=== PATIENT | male | born 1945 | race Caucasian/White ===

== ENCOUNTER 2022-05-18 08:09 | Inpatient (IN) | payer OTHER ==
[~2022-05-18] VITALS: Ht 177.8 cm; Wt 81.7 kg
[2022-05-18 09:21] LABS: BASOPHILS ABSOLUTE AUTO 0.02 K/mm3 (0.00-0.23); BASOPHILS PERCENT AUTO 0 % (0-2); EOSINOPHILS PERCENT AUTO 0 % (0-6); Hematocrit 42.2 % (37.0-53.0); Hemoglobin 14.6 g/dL (13.5-17.5); IMMATURE GRAN ABSOLUTE AUTO 0.04 K/mm3 (0.00-0.10); IMMATURE GRAN PERCENT AUTO 0 % (0-1); LYMPHOCYTES ABSOLUTE AUTO 0.23 K/mm3 (0.84-5.20); LYMPHOCYTES PERCENT AUTO 2 % (21-46); MONOCYTES PERCENT AUTO 1 % (4-13); Mean Corpuscular HGB 30.3 pg (26.0-34.0); Mean Corpuscular HGB Conc 34.6 g/dL (31.5-36.5); Mean Corpuscular Volume 88 fL (80-100); Mean Platelet Volume 11.4 fL (9.1-12.4); NEUTROPHILS ABSOLUTE AUTO 9.03 K/mm3 (1.96-9.15); NEUTROPHILS PERCENT AUTO 96 % (41-73); Platelet Count 92 K/mm3 (150-400); RDW Coefficient Variation 12.3 % (11.7-14.2); RDW Standard Deviation 39.8 fL (35.1-46.3); Red Blood Cell Count 4.82 M/mm3 (4.30-5.90); White Blood Cell Count 9.42 K/mm3 (4.00-11.30)
[2022-05-18 09:24] LABS: Albumin, Blood 3.5 g/dL (3.4-5.0); Albumin/Globulin Ratio 1.2 (0.8-1.8); Bilirubin, Total 1.3 mg/dL (0.1-1.0); Bun/Creatinine Ratio 19.1 (12.0-20.0); Calcium, Blood 9.1 mg/dL (8.5-10.1); Creatinine, Blood 0.89 mg/dL (0.60-1.20); Globulin, Blood 2.9 g/dL (2.2-4.0); Total Protein, Blood 6.4 g/dL (6.4-8.2)
[2022-05-18] MEDS ORDERED: NAPR500 PO (09:27)
[2022-05-18] MEDS ORDERED: BACL10 PO (09:27)
[2022-05-18] MEDS ORDERED: KETO.5OPSO BOTHEYES (09:28)
[2022-05-18] MEDS ORDERED: OCUFLOX510 OP (09:28)
[2022-05-18] MEDS ORDERED: TRAZ50 PO (09:28)
[2022-05-18] MEDS ORDERED: GABA300 PO (09:29)
[2022-05-18] MEDS ORDERED: DULO30 PO (09:29)
[2022-05-18] MEDS ORDERED: MULVITA PO (09:29)
[2022-05-18] MEDS ORDERED: Acetaminophen325 M1 PO (09:30)
[2022-05-18] MEDS ORDERED: Aspir 8181 MG PO (09:30)
[2022-05-18] MEDS ORDERED: ATOR20 PO (09:31)
[2022-05-18] MEDS ORDERED: ATEN50 PO (09:31)
[2022-05-18] MEDS ORDERED: PANT40 PO (09:31)
[2022-05-18 10:25] LABS: Source, Urine Straight Cath
[2022-05-18 10:28] LABS: Appearance, Urine Cloudy (Clear); Bilirubin, Urine Neg (Neg); Blood, Urine 4+ (Neg); Color, Urine Yellow (P-Yellow); Glucose Qualitative, Urine Neg (Neg); Ketones, Urine Neg (Neg); Leukocyte Esterase, Urine 3+ (Neg); Nitrite, Urine Pos (Neg); Protein, Urine 2+ (Neg); Specific Gravity, Urine 1.015 (1.003-1.022); Urobilinogen, Urine NORM (Normal)
[2022-05-18 10:54] LABS: Bacteria Many /hpf; Squamous Epithelial Cells Few /hpf (Few)
--- NOTE | 2022-05-18 14:21 | NUR ---
PT ARRIVED TO UNIT. PT ABLE TO SELF TRANSFER TO BED. ORIENTED TO ROOM/CALL LIGHT W/IN REACH. WATER PROVIDED. PT C/O HEADACHE-PLAN TO MEDICATE PER EMAR.
--- NOTE | 2022-05-18 15:19 | NUR ---
DR. REDDY CONTACTED AND CL LACTIC ACID REPORTED-PLAN TO CONTINUE NS @ 100 ML/HR
--- NOTE | 2022-05-19 05:11 | NUR ---
SHIFT SUMMARY 76 YR M ADMITTED ON 05/18/22 FOR UTI/SEPSIS. DNI. NO ACUTE CHANGES THIS SHIFT. PT HAS SLEPT FOR A GOOD PORTION OF THIS SHIFT AND HIS N/V SEEMS TO BE RESOLVED HE HAD NO C/O. HE INDEPENDANTLY USES A URINAL AND CALLS APPROPRIATELY FOR ASSISTANCE. A&OX4. HE IS PLEASANT AND COOPERATIVE WITH CARE AND FOLLOWS INSTRUCTIONS WELL.
[2022-05-19 10:02] LABS: BASOPHILS ABSOLUTE AUTO 0.06 K/mm3 (0.00-0.23); BASOPHILS PERCENT AUTO 0 % (0-2); EOSINOPHILS ABSOLUTE AUTO 0.01 K/mm3 (0.00-0.68); EOSINOPHILS PERCENT AUTO 0 % (0-6); Hematocrit 39.9 % (37.0-53.0); Hemoglobin 13.6 g/dL (13.5-17.5); IMMATURE GRAN ABSOLUTE AUTO 0.08 K/mm3 (0.00-0.10); IMMATURE GRAN PERCENT AUTO 1 % (0-1); LYMPHOCYTES ABSOLUTE AUTO 0.64 K/mm3 (0.84-5.20); LYMPHOCYTES PERCENT AUTO 5 % (21-46); MONOCYTES ABSOLUTE AUTO 1.45 K/mm3 (0.16-1.47); MONOCYTES PERCENT AUTO 10 % (4-13); Mean Corpuscular HGB 30.4 pg (26.0-34.0); Mean Corpuscular HGB Conc 34.1 g/dL (31.5-36.5); Mean Corpuscular Volume 89 fL (80-100); Mean Platelet Volume 11.5 fL (9.1-12.4); NEUTROPHILS PERCENT AUTO 84 % (41-73); Platelet Count 85 K/mm3 (150-400); RDW Coefficient Variation 12.8 % (11.7-14.2); RDW Standard Deviation 42.3 fL (35.1-46.3); Red Blood Cell Count 4.47 M/mm3 (4.30-5.90); White Blood Cell Count 14.04 K/mm3 (4.00-11.30)
[2022-05-19 10:20] LABS: Albumin, Blood 2.8 g/dL (3.4-5.0); Anion Gap 5 mmol/L (6-16); Blood Urea Nitrogen 18 mg/dL (8-24); Bun/Creatinine Ratio 18.9 (12.0-20.0); CO2, Blood 25 mmol/L (21-32); Calcium, Blood 8.8 mg/dL (8.5-10.1); Chloride, Blood 111 mmol/L (98-108); Creatinine, Blood 0.95 mg/dL (0.60-1.20); Glomerular Filtration Rate 84 (60-); Glucose, Blood 109 mg/dL (70-99); Phosphorus, Blood 1.4 mg/dL (2.5-4.9); Potassium, Blood 3.8 mmol/L (3.5-5.5); Sodium, Blood 141 mmol/L (136-145)
--- NOTE | 2022-05-19 17:08 | NUR ---
PATIENT IS ALERT AND ORIENTED AND COOPERATIVE WITH CARE. C/O HEADACHE, MEDICATED PER EMAR. PATIENT STATES HE WAS HAVING DIARRHEA AT HOME AND LAST NIGHT BUT NONE THIS SHIFT. POSITIVE BLOOD CULTURES. PATIENT STATES HE LIVES WITH HIS BEST FRIEND AND CARES FOR HER. PATIENT IS EAGER TO GO HOME BUT UNDERSTANDS HE NEEDS IV ANTIBIOTICS. WILL CONTINUE TO MONITOR
--- NOTE | 2022-05-20 04:42 | NUR ---
SHIFT SUMMARY 76 YR M ADMITTED ON 05/18/22 FOR UTI/SEPSIS. DNI. NO ACUTE CHANGES THIS SHIFT. CURRENTLY BEING TX W/ ABX FOR POSITIVE BLOOD CULTURES. PT IS A&O X 4 AND IS INDEPENDANT IN THE ROOM. HE C/O URINARY FREQUENCY AND HAVING TO MAKE SO MANY TRIPS TO THE BATHROOM. NO C/O PAIN OR DIARRHEA THIS SHIFT.
--- NOTE | 2022-05-20 06:01 | NUR ---
ROOM TRANSFER PT TRANSFERRED FROM RM 353 TO RM 359. REPORT TAKEN FROM AZEB QUIÑONES TO ASSUME CARE OF PT AT THIS TIME. PT SETTLED INTO RM 359, BELONGINGS IN PLACE.
[2022-05-20 08:51] LABS: Hematocrit 42.4 % (37.0-53.0); Hemoglobin 14.8 g/dL (13.5-17.5); Mean Corpuscular HGB 30.5 pg (26.0-34.0); Mean Corpuscular HGB Conc 34.9 g/dL (31.5-36.5); Mean Corpuscular Volume 87 fL (80-100); Mean Platelet Volume 11.8 fL (9.1-12.4); Platelet Count 89 K/mm3 (150-400); RDW Coefficient Variation 12.5 % (11.7-14.2); RDW Standard Deviation 39.9 fL (35.1-46.3); Red Blood Cell Count 4.86 M/mm3 (4.30-5.90); White Blood Cell Count 9.63 K/mm3 (4.00-11.30)
[2022-05-20 09:08] LABS: Albumin, Blood 3.1 g/dL (3.4-5.0); Anion Gap 7 mmol/L (6-16); Blood Urea Nitrogen 14 mg/dL (8-24); Bun/Creatinine Ratio 15.6 (12.0-20.0); CO2, Blood 25 mmol/L (21-32); Calcium, Blood 9.1 mg/dL (8.5-10.1); Chloride, Blood 108 mmol/L (98-108); Glomerular Filtration Rate 90 (60-); Glucose, Blood 113 mg/dL (70-99); Phosphorus, Blood 3.1 mg/dL (2.5-4.9); Potassium, Blood 3.8 mmol/L (3.5-5.5); Sodium, Blood 140 mmol/L (136-145)
--- NOTE | 2022-05-20 18:45 | NUR ---
PATIENT COMPLAINING OF PAIN WHEN URINATING AND DIFFICULTY EMPTYING BLADDER. MEDICATED PER NOV. BLADDER SCANNED PATIENT PRE VOID 288ML AND POST VOID 201ML. DR LOCKETT. WILL CONTINUE TO MONITOR URINARY OUTPUT.
--- NOTE | 2022-05-20 18:46 | NUR ---
SHIFT SUMMARY PATIENT A&OX4. AMBULATED INDEPENDENTLY. PLEASANT AND COOPERATIVE WITH CARE. C/O PAIN WHEN URINATING AND DIFFICULTY EMPTYING BLADDER. NO OTHER SIGNIFICANT EVENTS. WILL CONTINUE TO MONITOR.
--- NOTE | 2022-05-20 22:26 | NUR ---
BP 208/117 AND PO APRESOLINE 10 MG GIVEN FOR SBP >180. BP 132/78 ON REASSESSMENT. PATIENT WAS ANXIOUS AND UP TO BR ON FIRST BP.
--- NOTE | 2022-05-21 04:04 | NUR ---
SHIFT SUMMARY PATIENT BP ELEVATED AT SHIFT CHANGE 208/117. PO APRESOLINE 10 MG GIVEN FOR SBP >180. REASSESSED 132/78. AXO X 4 AND INDEPENDENT IN ROOM. POWERGLIDE PEDRO INTACT. PATIENT REPORTS VOIDING EASIER AFTER TAKING PYRIDIUM PRN. DENIES PAIN, SOB, AND N/V. AFEBRILE. CALL LIGHT IN REACH. BED IN LOWEST POSITION. WILL CONTINUE TO MONITOR UNTIL DAY SHIFT NURSE ASSUMES CARE.
[2022-05-21 04:42] LABS: Mean Platelet Volume 11.5 fL (9.1-12.4); Platelet Count 141 K/mm3 (150-400)
[2022-05-21 04:58] LABS: Albumin, Blood 3.2 g/dL (3.4-5.0); Anion Gap 7 mmol/L (6-16); Blood Urea Nitrogen 11 mg/dL (8-24); Bun/Creatinine Ratio 11.6 (12.0-20.0); CO2, Blood 27 mmol/L (21-32); Calcium, Blood 9.4 mg/dL (8.5-10.1); Chloride, Blood 106 mmol/L (98-108); Creatinine, Blood 0.95 mg/dL (0.60-1.20); Glomerular Filtration Rate 84 (60-); Glucose, Blood 107 mg/dL (70-99); Phosphorus, Blood 3.5 mg/dL (2.5-4.9); Potassium, Blood 3.5 mmol/L (3.5-5.5); Sodium, Blood 140 mmol/L (136-145)
--- NOTE | 2022-05-21 17:05 | NUR ---
SHIFT SUMMARY PATIENT A&OX4. AMBULATED INDEPENDENTLY IN ROOM AND HALLWAYS. C/O FREQUENT URINATION WITH DIFFICULTY EMPTYING BLADDER AND PAIN. MEDICATED WITH PYRDIUM AND STARTED ON FLOMAX THIS AFTERNOON. POST VOID PATIENT STILL HAD 132ML. C/O ACID REFLUX THIS AM, MEDICATED WITH TUMS WITH COMPLETE RELIEF. ELEVATED BP, OTHER VITAL SIGNS STABLE. RECEIVED PO AND IV ANTIBIOTICS. WILL CONTINUE TO MONITOR.
--- NOTE | 2022-05-21 18:54 | NUR ---
PATIENT VOIDED 200ML. POST VOID BLADDER SCAN SHOWING 143ML
[2022-05-22 04:40] LABS: Hematocrit 42.4 % (37.0-53.0); Hemoglobin 14.2 g/dL (13.5-17.5); Mean Corpuscular HGB 29.5 pg (26.0-34.0); Mean Corpuscular HGB Conc 33.5 g/dL (31.5-36.5); Mean Corpuscular Volume 88 fL (80-100); Mean Platelet Volume 11.6 fL (9.1-12.4); Platelet Count 132 K/mm3 (150-400); RDW Coefficient Variation 12.4 % (11.7-14.2); Red Blood Cell Count 4.82 M/mm3 (4.30-5.90); White Blood Cell Count 8.34 K/mm3 (4.00-11.30)
--- NOTE | 2022-05-22 04:49 | NUR ---
SHIFT SUMMARY PATIENT POST BLADDER SCANS <200 AND DOWN TO 48mL. AXO X4 AND INDEPENDENT IN ROOM. POWERGLIDE PEDRO INTACT. VSS/AFEBRILE. DENIES CHEST PAIN, SOB, AND N/V. COOPERATIVE WITH CARE. CALL LIGHT IN REACH. BED IN LOWEST POSITION. WILL CONTINUE TO MONITOR UNTIL DAY SHIFT NURSE ASSUMES CARE.
[2022-05-22 04:51] LABS: Albumin, Blood 2.9 g/dL (3.4-5.0); Anion Gap 6 mmol/L (6-16); Blood Urea Nitrogen 12 mg/dL (8-24); Bun/Creatinine Ratio 11.8 (12.0-20.0); CO2, Blood 29 mmol/L (21-32); Calcium, Blood 9.2 mg/dL (8.5-10.1); Chloride, Blood 107 mmol/L (98-108); Creatinine, Blood 1.02 mg/dL (0.60-1.20); Glomerular Filtration Rate 77 (60-); Glucose, Blood 106 mg/dL (70-99); Phosphorus, Blood 4.3 mg/dL (2.5-4.9); Potassium, Blood 3.9 mmol/L (3.5-5.5); Sodium, Blood 142 mmol/L (136-145)
[2022-05-22] MEDS ORDERED: LEVFLO500 PO (11:33)
[2022-05-22] MEDS ORDERED: TAMS.4ER PO (11:34)
[2022-05-22] MEDS ORDERED: VISBIOME 112.51 EACH PO (11:34)
[2022-05-22] MEDS ORDERED: PHENAZOPYRIDINE95 MG PO (11:34)
--- NOTE | 2022-05-22 12:18 | NUR ---
DISCHARGE SUMMARY ALERT AND ORIENTED THROUGHOUT SHIFT. INDEPENDENT IN ROOM. TOLERATING REGULAR DIET AND LIQUIDS. FREQUENT URINATION. DISCHARGE ORDER OBTAINED. DISCHARGE EDUCATION GIVEN ON NEW MEDS AND FOLLOW UP APPTS. POWERGLIDE IV DC'D WNL. PT TOLERATED WELL.
--- NOTE | 2022-05-22 14:42 | NUR ---
DISCHARGE NOTE PATIENT LEFT UNIT AT 1300 VIA WHEELCHAIR WITH FAMILY FOR HOME.
== END 2022-05-22 13:41 | disposition home or self-care (01) | DRG 871 ==
LOC: ER 08:09 → MEDS 08:10 → ER 08:10 → MEDS 14:00 → ENPENDDIS 05-22 10:32 → MEDS 05-22 13:41
PROVIDERS: Emergency Medicine; Internal Medicine; ADMIT Hospitalist
DX: A41.51 Sepsis due to Escherichia coli [E. coli] (principal); J18.9 Pneumonia, unspecified organism; N39.0 Urinary tract infection, site not specified; E87.2 Acidosis; R65.20 Severe sepsis without septic shock; G47.00 Insomnia, unspecified; I10 Essential (primary) hypertension; E78.5 Hyperlipidemia, unspecified; G89.29 Other chronic pain; K21.9 Gastro-esophageal reflux disease without esophagitis; M54.9 Dorsalgia, unspecified; E87.6 Hypokalemia; D69.6 Thrombocytopenia, unspecified; E83.39 Other disorders of phosphorus metabolism; N40.1 Benign prostatic hyperplasia with lower urinary tract symptoms; R30.0 Dysuria; R35.0 Frequency of micturition; R33.8 Other retention of urine; Z87.891 Personal history of nicotine dependence; Z79.82 Long term (current) use of aspirin; Z79.899 Other long term (current) drug therapy
CPT/HCPCS: 36415; 51701; 51798; 71045; 80053; 80069; 81001; 83605; 84145; 84153; 85025; 85027; 85049; 85651; 86141; 87040; 87077; 87086; 87186; 96361-59; 96374-59; 99285-25; A9270; J0696; J1650; J2405; J2765; J7030; J7060

== ENCOUNTER 2024-05-30 12:05 | Emergency (ER) | payer OTHER ==
[~2024-05-30] VITALS: Ht 177.8 cm; Wt 87.5 kg
[~2024-05-30 12:05] MED LIST: ATEN50 PO; ATOR20 PO; Acetaminophen325 M1 PO; Aspir 8181 MG PO; BACL10 PO; DULO30 PO; GABA300 PO; KETO.5OPSO BOTHEYES; LEVFLO500 PO; LIDO700A20 TOP; MULVITA PO; NAPR500 PO; OCUFLOX510 OP; PANT40 PO; PHENAZOPYRIDINE95 MG PO; Percocet 5-3251 EACH PO; TAMS.4ER PO; TRAZ50 PO; VISBIOME 112.51 EACH PO
[2024-05-30 12:55] VITALS: BP 104/73
== END 2024-05-30 13:49 | disposition home or self-care (01) ==
LOC: ER 12:05
DX: U07.1 COVID-19 (principal); E78.5 Hyperlipidemia, unspecified; I10 Essential (primary) hypertension; K21.9 Gastro-esophageal reflux disease without esophagitis; Z87.891 Personal history of nicotine dependence; Z79.82 Long term (current) use of aspirin; Z79.899 Other long term (current) drug therapy
CPT/HCPCS: 99284

== ENCOUNTER 2025-01-10 14:30 | Observation (INO) | payer OTHER ==
[~2025-01-10] VITALS: Ht 182.9 cm; Wt 73.1 kg
[2025-01-10] MEDS ORDERED: Naloxone HCl 0.4MG / ML 1ML Vial IV ONE (15:00)
[2025-01-10 15:15] LABS: BASOPHILS ABSOLUTE AUTO 0.04 K/mm3 (0.00-0.23); BASOPHILS PERCENT AUTO 1 % (0-2); EOSINOPHILS ABSOLUTE AUTO 0.03 K/mm3 (0.00-0.68); EOSINOPHILS PERCENT AUTO 0 % (0-6); Hematocrit 39.1 % (37.0-53.0); Hemoglobin 13.7 g/dL (13.5-17.5); IMMATURE GRAN ABSOLUTE AUTO 0.02 K/mm3 (0.00-0.10); IMMATURE GRAN PERCENT AUTO 0 % (0-1); LYMPHOCYTES ABSOLUTE AUTO 0.74 K/mm3 (0.84-5.20); LYMPHOCYTES PERCENT AUTO 9 % (21-46); MONOCYTES ABSOLUTE AUTO 0.54 K/mm3 (0.16-1.47); MONOCYTES PERCENT AUTO 7 % (4-13); Mean Corpuscular HGB 31.2 pg (26.0-34.0); Mean Corpuscular Volume 89 fL (80-100); NEUTROPHILS ABSOLUTE AUTO 6.55 K/mm3 (1.96-9.15); NEUTROPHILS PERCENT AUTO 83 % (41-73); Platelet Count 162 K/mm3 (150-400); RDW Coefficient Variation 12.6 % (11.7-14.2); RDW Standard Deviation 41.2 fL (35.1-46.3); Red Blood Cell Count 4.39 M/mm3 (4.30-5.90); White Blood Cell Count 7.92 K/mm3 (4.00-11.30)
[2025-01-10 15:41] LABS: Alanine Aminotransfer (ALT/SGP 31 U/L (12-78); Albumin, Blood 3.6 g/dL (3.4-5.0); Albumin/Globulin Ratio 1.3 (0.8-1.8); Alk Phos 46 U/L (50-136); Anion Gap 12 mmol/L (3-11); Aspartate Aminotrans (AST/SGOT 44 U/L (12-37); Bilirubin, Total 1.1 mg/dL (0.1-1.0); Blood Urea Nitrogen 15 mg/dL (8-24); Bun/Creatinine Ratio 14.6 (12.0-20.0); CO2, Blood 24 mmol/L (21-32); Calcium, Blood 9.5 mg/dL (8.5-10.1); Chloride, Blood 106 mmol/L (98-108); Creatinine, Blood 1.03 mg/dL (0.60-1.20); Ethanol (Alcohol), Blood, Med <3 mg/dL; Globulin, Blood 2.7 g/dL (2.2-4.0); Glomerular Filtration Rate 75 (60-); Glucose, Blood 112 mg/dL (70-99); Potassium, Blood 3.6 mmol/L (3.5-5.5); Sodium, Blood 138 mmol/L (136-145); Total Protein, Blood 6.3 g/dL (6.4-8.2)
[2025-01-10 16:03] LABS: Source, Urine Straight Cath
[2025-01-10 16:06] LABS: Appearance, Urine Clear (Clear); Bilirubin, Urine Neg (Neg); Blood, Urine Neg (Neg); Color, Urine Yellow (P-Yellow); Glucose Qualitative, Urine Neg (Neg); Ketones, Urine Neg (Neg); Leukocyte Esterase, Urine Neg (Neg); Nitrite, Urine Neg (Neg); Protein, Urine 2+ (Neg); Urobilinogen, Urine 1+ (Normal)
[2025-01-10 16:15] LABS: Bacteria Rare /hpf; Calcium Oxalate Crystals Rare /hpf; Red Blood Cells, Urine 0-2 /hpf (0-2); Squamous Epithelial Cells Rare /hpf (Few); White Blood Cells, Urine 0-2 /hpf (0-5)
[2025-01-10 16:16] LABS: Mucus Light (0-Heavy)
[2025-01-10 16:17] LABS: U Amphetamine Screen Not Detected; U Barbituate Screen Not Detected; U Benzodiazapine Screen Not Detected; U Buprenorphine Screen Not Detected; U Cannabinoids Screen Not Detected; U Cocaine Screen Not Detected; U Methadone Screen Not Detected; U Methamphetamine Screen Not Detected; U Opiates Screen Not Detected; U Oxycodone Screen Not Detected; U Phencyclidine Screen Not Detected
[2025-01-10] MEDS ORDERED: Azithromycin 500 MG in NS 250 ML IV ONE (17:55)
[2025-01-10] MEDS ORDERED: CefTRIAXone Sodium 1,000 MG in NS 100 ML IV ONE (17:55)
[2025-01-10] MEDS ORDERED: Ondansetron HCl 2 MG / ML 2ML Vial IV PRN (18:30)
[2025-01-10] MEDS ORDERED: NS 1,000 ML IV SCH (18:30)
[2025-01-10] MEDS ORDERED: Enoxaparin 40 MG/0.4 ML SYR SC SCH (19:00)
[2025-01-10 19:28] LABS: Base Excess Venous -0.5 mmol/L; Bicarbonate Venous 23.2 mmol/L (24.0-30.0); PCO2 Venous 53.4 mmHg (38-42)
[2025-01-10 19:30] LABS: Influenza A, PCR NEGATIVE (NEGATIVE); Influenza B, PCR NEGATIVE (NEGATIVE); Resp Syncytial Virus, PCR NEGATIVE (NEGATIVE); SARS-Cov-2 (COVID-19) PCR, MMC NEGATIVE (NEGATIVE)
[2025-01-10 21:15] VITALS: BP 126/89
[2025-01-10] MEDS ORDERED: NS 1,000 ML IV ONE (21:33)
--- NOTE | 2025-01-10 22:22 | NUR ---
ASSUMPTION OF CARE PT ARRIVED TO ROOM AND SLID TO HOSPITAL BED. PT IS VISIBLY CONFUSED AND RESTLESS, HE IS ATTEMPTING TO EXIT THE BED AND PULLING AT IV AND RDZ. PT IS UNABLE TO BE REDIRECTED OR DISTRACTED. SOFT RESTRAINTS APPLIED TO BILATERAL WRISTS. RESTRAINTS DISCONTINUED AFTER 1 HOUR. PT IS A&O TO PERSON, HE IS UNABLE TO STATE HIS BIRTHDATE, LOCATION, OR YEAR. VSS, AFEBRILE, SPO2 >95% ON RA. RDZ IN PLACE DRAINING YELLOW URINE TO GRAVITY. FLUIDS INFUSING PER EMAR. PT IS NOW SLEEPING, RESPIRATIONS ARE EVEN AND UNLABORED, CALL LIGHT IN REACH, BED ALARM ON, BED IN LOWEST POSITION.
[2025-01-11 00:06] VITALS: BP 126/69
[2025-01-11] MEDS ORDERED: TOLTERODINE TART4 MG PO (02:52)
[2025-01-11] MEDS ORDERED: MAGNESIUM OXID500 MG PO (02:53)
[2025-01-11] MEDS ORDERED: CARBOXYMETHYLCE15 ML BOTHEYES (02:56)
[2025-01-11] MEDS ORDERED: THERA-D2000 UNIT PO (02:59)
[2025-01-11] MEDS ORDERED: B-12500 MC2 PO (03:00)
[2025-01-11 03:48] VITALS: BP 144/101
[2025-01-11 03:57] LABS: BASOPHILS ABSOLUTE AUTO 0.04 K/mm3 (0.00-0.23); BASOPHILS PERCENT AUTO 1 % (0-2); EOSINOPHILS ABSOLUTE AUTO 0.05 K/mm3 (0.00-0.68); EOSINOPHILS PERCENT AUTO 1 % (0-6); Hematocrit 39.6 % (37.0-53.0); Hemoglobin 13.6 g/dL (13.5-17.5); IMMATURE GRAN ABSOLUTE AUTO 0.03 K/mm3 (0.00-0.10); IMMATURE GRAN PERCENT AUTO 0 % (0-1); LYMPHOCYTES ABSOLUTE AUTO 1.12 K/mm3 (0.84-5.20); LYMPHOCYTES PERCENT AUTO 15 % (21-46); MONOCYTES ABSOLUTE AUTO 0.77 K/mm3 (0.16-1.47); MONOCYTES PERCENT AUTO 10 % (4-13); Mean Corpuscular HGB 30.8 pg (26.0-34.0); Mean Corpuscular HGB Conc 34.3 g/dL (31.5-36.5); Mean Corpuscular Volume 90 fL (80-100); Mean Platelet Volume 11.2 fL (9.1-12.4); NEUTROPHILS ABSOLUTE AUTO 5.65 K/mm3 (1.96-9.15); NEUTROPHILS PERCENT AUTO 74 % (41-73); Platelet Count 149 K/mm3 (150-400); RDW Coefficient Variation 12.6 % (11.7-14.2); RDW Standard Deviation 41.5 fL (35.1-46.3); Red Blood Cell Count 4.41 M/mm3 (4.30-5.90); White Blood Cell Count 7.66 K/mm3 (4.00-11.30)
[2025-01-11 04:17] LABS: Albumin, Blood 3.1 g/dL (3.4-5.0); Albumin/Globulin Ratio 1.2 (0.8-1.8); Bilirubin, Total 0.7 mg/dL (0.1-1.0); Bun/Creatinine Ratio 13.9 (12.0-20.0); Calcium, Blood 8.6 mg/dL (8.5-10.1); Creatinine, Blood 0.86 mg/dL (0.60-1.20); Globulin, Blood 2.6 g/dL (2.2-4.0); Total Protein, Blood 5.7 g/dL (6.4-8.2)
--- NOTE | 2025-01-11 05:37 | NUR ---
SHIFT SUMMARY NO ACUTE CHANGES SINCE ASSUMPTION OF CARE. PT IS A&O TO SELF, UNABLE TO MAKE NEEDS KNOWN. PT HAS REQUIRED BILATERAL SOFT WRIST RESTRAINTS THIS SHIFT DUE TO PULLING AT LINES AND RDZ AND TRYING TO GET OOB. HE HAS BEEN UNABLE TO BE REDIRECTED. VSS, AFEBRILE. RDZ DRAINING YELLOW URINE TO GRAVITY. NS INFUSING PER EMAR. HE IS NOW RESTING IN BED, BREATHING EVEN AND UNLABORED, CALL LIGHT IN REACH.
[2025-01-11 07:24] VITALS: BP 144/88
--- NOTE | 2025-01-11 07:24 | NUR ---
ASSUMPTION NOTE: THIS RN TO ASSUME CARE OF PATIENT. PATIENT IS ALERT AND ORIENTED X1, TO SELF ONLY. WAS REORIENTED TO PLACE & SITUATION. PATIENT HAS A SITTER IN THE ROOM. VITAL SIGNS TAKEN, PATIENT STABLE. DENIES ANY NEED AT THIS TIME, HAS CALL LIGHT WITHIN REACH, BED IN LOWEST POSITION & BED ALARM ON.
[2025-01-11 10:29] LABS: Adenovirus Not Detected (NOT DETECT); Bordetella pertussis Not Detected (NOT DETECT); Chlamydophila pneumoniae Not Detected (NOT DETECT); Coronavirus 229E Not Detected (NOT DETECT); Coronavirus HKU1 Not Detected (NOT DETECT); Coronavirus NL63 Not Detected (NOT DETECT); Coronavirus OC43 Not Detected (NOT DETECT); Human Metapneumovirus Not Detected (NOT DETECT); Human Rhinovirus/Enterovirus Not Detected (NOT DETECT); Influenza A/2009-H1 Not Detected (NOT DETECT); Influenza A/H1 Not Detected (NOT DETECT); Influenza A/H3 Not Detected (NOT DETECT); Influenza B Not Detected (NOT DETECT); Mycoplasma pneumoniae Not Detected (NOT DETECT); Parainfluenza Virus 1 Not Detected (NOT DETECT); Parainfluenza Virus 2 Not Detected (NOT DETECT); Parainfluenza Virus 3 Not Detected (NOT DETECT); Parainfluenza Virus 4 Not Detected (NOT DETECT); Respiratory Syncytial Virus Not Detected (NOT DETECT); SARS-Cov-2 (COVID-19), BioFire Not Detected (NOT DETECT)
--- NOTE | 2025-01-11 11:25 | NUR ---
MD ROUNDED: MD TO BEDSIDE AND ROUNDED ON PATIENT. PATIENT WAS TALKING WITH MD AND MORE ALERT. PATIENT WAS WORRIED ABOUT WHEN HE WOULD BE ABLE TO GO HOME & WAS WORRIED ABOUT HIS GIRLFRIEND HE IS HER NIGHT CAREGIVER. PATIENT WAS NOTIFIED HE WAS DOING BETTER AND IS NOW MEDICAL WITH TELE STATUS & WILL MOVE UPSTAIRS AT SOME POINT.
[2025-01-11] MEDS ORDERED: Peg 400/Hypromellose/Glycerin 15 DROP/ML BTL BOTHEYES PRN (13:30)
[2025-01-11] MEDS ORDERED: Acetaminophen 325 MG TABLET PO PRN (13:30)
[2025-01-11] MEDS ORDERED: Gabapentin 300 MG Cap PO SCH (14:00)
[2025-01-11] MEDS ORDERED: Lidocaine 4% 1 Patch TOP PRN (14:00)
[2025-01-11 16:17] VITALS: BP 138/81
--- NOTE | 2025-01-11 16:54 | NUR ---
SHIFT SUMMARY: PATIENT IS ALERT AND ORIENTED X1 AT THE START OF SHIFT AND LATER BECAME A&OX3, WASN'T TOO SURE ON THE DATE. PATIENT IS SATTING >92% ON ROOM AIR, EVEN & UNLABORED RESPIRATIONS AT REST. PATIENT ON TELE SHOWING SINUS RYTHM WITH RATE IN 70'S. PATIENT SITTER LEFT THROUGHOUT SHIFT AND PATIENT WAS USING CALL LIGHT APPRORAITELY. PATIENT IS 1 PERSON ASSIST TO USE THE BATHROOM. PATIENT WAS WORRIED ABOUT HIS GIRLFRIEND HE IS THE CAREGIVER BUT WAS REASSURED SHE WAS TAKEN CARE OF. PATIENT IS MEDICAL WITH TELE STATUS, AWARE AND AWAITING A BED. HAS CALL LIGHT WITHIN REACH, BED IN LOWEST POSITION & STATING NOTHING IS NEEDED AT THIS TIME.
[2025-01-11] MEDS ORDERED: CefTRIAXone Sodium 1,000 MG in NS 100 ML IV SCH (18:00)
[2025-01-11] MEDS ORDERED: Azithromycin 500 MG in NS 250 ML IV SCH (19:00)
[2025-01-11 19:56] VITALS: BP 152/80
[2025-01-11 20:52] VITALS: BP 135/71
[2025-01-11] MEDS ORDERED: TraZODone HCl 50 MG Tab PO SCH (21:00)
[2025-01-11] MEDS ORDERED: Atorvastatin 10 MG Tab PO SCH (21:00)
[2025-01-12 01:33] VITALS: BP 139/77
[2025-01-12 05:26] VITALS: BP 132/88
[2025-01-12] MEDS ORDERED: Pantoprazole Sodium 40 MG Tab PO SCH (06:00)
[2025-01-12 07:12] LABS: BASOPHILS ABSOLUTE AUTO 0.04 K/mm3 (0.00-0.23); BASOPHILS PERCENT AUTO 1 % (0-2); EOSINOPHILS ABSOLUTE AUTO 0.07 K/mm3 (0.00-0.68); EOSINOPHILS PERCENT AUTO 1 % (0-6); Hematocrit 37.6 % (37.0-53.0); Hemoglobin 13.3 g/dL (13.5-17.5); IMMATURE GRAN ABSOLUTE AUTO 0.01 K/mm3 (0.00-0.10); IMMATURE GRAN PERCENT AUTO 0 % (0-1); LYMPHOCYTES ABSOLUTE AUTO 1.08 K/mm3 (0.84-5.20); LYMPHOCYTES PERCENT AUTO 19 % (21-46); MONOCYTES PERCENT AUTO 11 % (4-13); Mean Corpuscular HGB Conc 35.4 g/dL (31.5-36.5); Mean Corpuscular Volume 88 fL (80-100); Mean Platelet Volume 11.1 fL (9.1-12.4); NEUTROPHILS ABSOLUTE AUTO 3.83 K/mm3 (1.96-9.15); NEUTROPHILS PERCENT AUTO 68 % (41-73); Platelet Count 145 K/mm3 (150-400); RDW Coefficient Variation 12.7 % (11.7-14.2); RDW Standard Deviation 40.8 fL (35.1-46.3); Red Blood Cell Count 4.29 M/mm3 (4.30-5.90); White Blood Cell Count 5.63 K/mm3 (4.00-11.30)
[2025-01-12 07:14] VITALS: BP 148/73
[2025-01-12 07:33] LABS: Albumin, Blood 3.2 g/dL (3.4-5.0); Albumin/Globulin Ratio 1.2 (0.8-1.8); Bilirubin, Total 0.9 mg/dL (0.1-1.0); Bun/Creatinine Ratio 8.3 (12.0-20.0); Calcium, Blood 8.8 mg/dL (8.5-10.1); Creatinine, Blood 0.84 mg/dL (0.60-1.20); Globulin, Blood 2.7 g/dL (2.2-4.0); Total Protein, Blood 5.9 g/dL (6.4-8.2)
[2025-01-12] MEDS ORDERED: Potassium Chloride 10 Meq Tablet SA PO ONE (08:00)
[2025-01-12] MEDS ORDERED: DULoxetine HCL 30 MG Cap DR PO SCH (09:00)
[2025-01-12] MEDS ORDERED: Cyanocobalamin 500 MCG Tab PO SCH (09:00)
[2025-01-12] MEDS ORDERED: Magnesium Oxide 400 MG Tab PO SCH (09:00)
[2025-01-12] MEDS ORDERED: Tamsulosin HCl 0.4 MG Cap PO SCH (09:00)
[2025-01-12] MEDS ORDERED: Cholecalciferol 1000 Unit Tablet (=25MCG) PO SCH (09:00)
--- NOTE | 2025-01-12 16:16 | NUR ---
DISCHARGE PT DISCHARGED HOME [facility]IA [facility]. EDUCATION PROVIDED, ALL BELONGINGS SENT WITH PT.
[2025-01-12] MEDS ORDERED: Lactobacil 2-S.Thermo-Bifido 1 1 Cap PO SCH (21:00)
== END 2025-01-12 15:26 | disposition home or self-care (01) ==
LOC: ER 14:30 → MEDS 14:31 → PCU 14:31 → MEDS 01-11 20:39
PROVIDERS: Student in an Organized Health Care Education/Training Program; ADMIT Internal Medicine
DX: G93.40 Encephalopathy, unspecified (principal); E78.5 Hyperlipidemia, unspecified; F32.A Depression, unspecified; G89.29 Other chronic pain; N40.0 Benign prostatic hyperplasia without lower urinary tract symptoms; G47.00 Insomnia, unspecified; H04.129 Dry eye syndrome of unspecified lacrimal gland; I10 Essential (primary) hypertension; K21.9 Gastro-esophageal reflux disease without esophagitis
CPT/HCPCS: 0202U; 0241U; 36415; 51702; 70450; 70496; 71045; 80053; 80320; 81001; 82140; 82803; 82947; 83605; 83880; 84443; 85025; 85651; 87040; 93005; 93010; 96365; 96366; 96367; 96372; 96375; 97162; 97530; 99285-25; A9270; G0378; J0456; J0696; J1650; J2310; J7030; J7050; Q9967